=== PATIENT | male | born 1990 | race Caucasian/White ===

== ENCOUNTER 2021-02-06 15:38 | Emergency (ER) | payer OTHER, BC ==
[2021-02-06 15:51] VITALS: BP 122/71; PULSE 74
--- NOTE | 2021-02-06 17:50 | CR ---
PROCEDURE INFORMATION: Exam: XR Left Ankle Exam date and time: 02/06/2021 5:36 PM Age: 30 years old Clinical indication: Other: Fall/pain; Additional info: Sprain TECHNIQUE: Imaging protocol: XR Left ankle. Views: 3 or more views. COMPARISON: No relevant prior studies available. FINDINGS: Bones/joints: Normal. Soft tissues: Normal. IMPRESSION: No acute findings.
--- NOTE | 2021-02-06 17:51 | CR ---
PROCEDURE INFORMATION: Exam: XR Left Knee Exam date and time: 02/06/2021 5:39 PM Age: 30 years old Clinical indication: Other: Fall/pain; Additional info: Sprain TECHNIQUE: Imaging protocol: XR Left knee. Views: 3 views. COMPARISON: No relevant prior studies available. FINDINGS: Bones/joints: Normal. Soft tissues: Normal. IMPRESSION: No acute findings.
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
== END 2021-02-06 18:21 | disposition home or self-care (01) ==
LOC: DL.ED 15:38
DX: S83.412A Sprain of medial collateral ligament of left knee, initial encounter (principal); S90.32XA Contusion of left foot, initial encounter; W50.0XXA Accidental hit or strike by another person, initial encounter; Y92.89 Other specified places as the place of occurrence of the external cause; Y99.0 Civilian activity done for income or pay
CPT/HCPCS: 73562-LT; 73610-LT; 99283; 99283-25

== ENCOUNTER 2024-05-20 15:47 | Emergency (ER) | payer BC, OTHER ==
[2024-05-20 16:00] VITALS: BP 127/85; PULSE 70
[2024-05-20] MEDS: Ondansetron 4 MG Tab.DIS PO ONE (16:32)
[2024-05-20] MEDS: Ketorolac 30 MG/ML SDV IM ONE (17:15)
== END 2024-05-20 17:30 | disposition home or self-care (01) ==
LOC: DL.ED 15:47
DX: S06.0X0A Concussion without loss of consciousness, initial encounter (principal); W20.8XXA Other cause of strike by thrown, projected or falling object, initial encounter; Y92.512 Supermarket, store or market as the place of occurrence of the external cause
CPT/HCPCS: 70450; 72125; 96372; 99284; A9270-GY; J1885